=== PATIENT | female | born 1960 | race Two or more races ===

== ENCOUNTER 2020-07-26 20:29 | Emergency (ER) | payer OTHER ==
[~2020-07-26] VITALS: Ht 172.7 cm; Wt 72.6 kg
[2020-07-26] MEDS ORDERED: HYDROCHLOROTH12.5 MG (21:03)
[2020-07-26] MEDS ORDERED: TRAZODONE HCL150 MG (21:03)
[2020-07-26] MEDS ORDERED: LIPITOR40 M1 (21:03)
[2020-07-26] MEDS ORDERED: XANAX1 MG (21:03)
[2020-07-27] MEDS ORDERED: VOLTAREN-XR100 MG PO (01:34)
[2020-07-27] MEDS ORDERED: CARAFATE1 GM PO (01:34)
== END 2020-07-27 01:47 ==
LOC: ER 20:29
DX: S90.31XA Contusion of right foot, initial encounter (principal); S90.32XA Contusion of left foot, initial encounter; S20.213A Contusion of bilateral front wall of thorax, initial encounter; S50.11XA Contusion of right forearm, initial encounter; S90.02XA Contusion of left ankle, initial encounter; S90.01XA Contusion of right ankle, initial encounter; S60.222A Contusion of left hand, initial encounter; S60.221A Contusion of right hand, initial encounter; S60.212A Contusion of left wrist, initial encounter; S60.211A Contusion of right wrist, initial encounter; S50.12XA Contusion of left forearm, initial encounter; S10.83XA Contusion of other specified part of neck, initial encounter; S30.0XXA Contusion of lower back and pelvis, initial encounter; S70.02XA Contusion of left hip, initial encounter; S70.01XA Contusion of right hip, initial encounter; W18.09XA Striking against other object with subsequent fall, initial encounter; Y93.89 Activity, other specified; Y92.511 Restaurant or cafe as the place of occurrence of the external cause; Y99.8 Other external cause status; Z20.828 Contact with and (suspected) exposure to other viral communicable diseases

== ENCOUNTER 2022-03-05 11:57 | Outpatient (CLI) | payer BC ==
[~2022-03-05 11:57] MED LIST: CARAFATE1 GM PO; HYDROCHLOROTH12.5 MG; LIPITOR40 M1; TRAZODONE HCL150 MG; VOLTAREN-XR100 MG PO; XANAX1 MG
== END 2022-03-05 11:58 | disposition home or self-care (01) ==
LOC: LAB 11:57
PROVIDERS: ATTEND Physical Medicine & Rehabilitation
DX: I82.403 Acute embolism and thrombosis of unspecified deep veins of lower extremity, bilateral (principal)